=== PATIENT | female | born 1985 ===

== ENCOUNTER 2020-07-19 13:07 | Outpatient (REF) | payer OTHER, SELFPAY ==
[2020-07-20 13:13] LABS: C. trachomatis RNA TMA NOT DETECTED (NOT DETECTED); N. gonorrhoeae RNA TMA DETECTED (NOT DETECTED)
== END 2020-07-19 13:08 | disposition home or self-care (01) ==
LOC: HO.LAB 13:07
PROVIDERS: Visit Provider Obstetrics & Gynecology
DX: Z30.09 Encounter for other general counseling and advice on contraception (principal)
CPT/HCPCS: 36415; 87491; 87591; 99202

== ENCOUNTER 2020-07-20 14:30 | Outpatient (REF) | payer OTHER, SELFPAY ==
[2020-07-21 11:28] LABS: BV Int Neg Control Negative (Negative); BV Int Pos Control Positive (Positive)
== END 2020-07-20 14:31 | disposition home or self-care (01) ==
LOC: HO.LAB 14:30
PROVIDERS: Visit Provider Obstetrics & Gynecology
DX: A54.9 Gonococcal infection, unspecified (principal)
CPT/HCPCS: 87480; 87510; 87660; 96372; 99212; J0696